=== PATIENT | female | born 1985 | race Caucasian/White ===

== ENCOUNTER → 2016-03-18 | Day surgery (SDC) | payer MEDICAID ==
[~2016-03-18] VITALS: Ht 160 cm; Wt 70.3 kg
[~2016-03-18] MED LIST: DEXAMETHASONE SOD PHOS 10MG/1ML VIAL INJ ONE; LACT. RINGERS/OXYTOCIN 20UNITS 1,000 ML IV ONE; LACTATED RINGER'S 1,000 ML IV SCH; LITHIUM; MIDAZOLAM HCL 1MG/1ML-2 ML VIAL ONE; ONDANSETRON HCL 4 MG/2 ML VIAL IV PRN; OXYTOCIN 10UNIT/ML 1ML VIAL ONE; PROPOFOL 10 MG/ML 20 ML IV ONE; SERAQUIL; SODIUM CHLORIDE 0.9% 1,000 ML IV ONE; SODIUM CHLORIDE 0.9% 1,000 ML IV SCH; WELLBUTRIN; ceFAZolin 1GM/50ML D5W 50 ML IV ONE; fentaNYL CITRATE 100 MCG/2 ML VL ONE
[2016-03-18 11:04] LABS: Basophils # (auto) 0 uL; Basophils % (auto) 0.4 % (0.0-2.0); DEFINITIVE VIEW TRANSMISSION; Eosinophils # (auto) 0.1 uL; Eosinophils % (auto) 1.6 % (0.0-7.0); Hematocrit 28.4 % (36.0-46.0); Lymphocytes # (auto) 2.1 uL; Lymphocytes % (auto) 22.1 % (10.0-50.0); Mean Corpuscular Hemoglobin 23.3 pg (28.0-32.0); Mean Corpuscular Hgb Conc. 31.8 g/dL (32.0-36.0); Mean Corpuscular Volume 73.4 fL (80.0-100.0); Mean Platelet Volume 8.1 fL (7.4-10.4); Monocytes # (auto) 0.6 uL; Monocytes % (auto) 6.2 % (0.0-12.0); Neutrophils # (auto) 6.6 uL; Neutrophils % (auto) 69.7 % (37.0-80.0); Platelet Count (auto) 292 10^3/uL (140-450); White Blood Cell 9.5 10^3/uL (4.4-10.8)
[2016-03-18 11:05] LABS: Red Cell Distribution Width 21.7 % (11.6-16.0)
[2016-03-18 11:21] LABS: Albumin 2.9 g/dL (3.4-5.0); BUN/Creatinine Ratio 16.4; Bilirubin, Total 0.2 mg/dL (0.2-1.0); Calcium 8.3 mg/dL (8.5-10.1); INR 1.05 (0.9-1.15); Partial Thromboplastin Time 28.7 sec (22.64-33.71); Potassium 3.6 mmol/L (3.5-5.1); Prothrombin Time 10.8 sec (9.37-12.3); Total Protein 6.4 g/dL (6.4-8.2)
[2016-03-18 11:25] LABS: Platelet Estimate Adequate
[2016-03-18 11:26] LABS: Anisocytosis Slight; Hypochromia Slight
[2016-03-18 15:51] VITALS: BP 129/72
== END | disposition home or self-care (01) ==
LOC: EDUNIT# 08:29 → ER 08:32 → OR 1 08:33
PROVIDERS: ATTEND Specialist
DX: O03.4 Incomplete spontaneous abortion without complication (principal); D64.9 Anemia, unspecified; F17.200 Nicotine dependence, unspecified, uncomplicated; N71.9 Inflammatory disease of uterus, unspecified; F31.9 Bipolar disorder, unspecified
CPT/HCPCS: 59812; J2590; J3010; J7030; 36415; 76856; 80053; 84702; 85025; 85049; 85610; 85730; 86850; 86900; 86901; J0690; J1100; J2250; J2704

== ENCOUNTER 2017-07-20 12:45 | Observation (INO) | payer MEDICAID ==
[~2017-07-20 12:45] MED LIST changes: -DEXAMETHASONE SOD PHOS 10MG/1ML VIAL INJ ONE; -LACT. RINGERS/OXYTOCIN 20UNITS 1,000 ML IV ONE; -LACTATED RINGER'S 1,000 ML IV SCH; -MIDAZOLAM HCL 1MG/1ML-2 ML VIAL ONE; -ONDANSETRON HCL 4 MG/2 ML VIAL IV PRN; -OXYTOCIN 10UNIT/ML 1ML VIAL ONE; -PROPOFOL 10 MG/ML 20 ML IV ONE; -SODIUM CHLORIDE 0.9% 1,000 ML IV ONE; -SODIUM CHLORIDE 0.9% 1,000 ML IV SCH; -ceFAZolin 1GM/50ML D5W 50 ML IV ONE; -fentaNYL CITRATE 100 MCG/2 ML VL ONE
[2017-07-20 13:57] LABS: Urine Bacteria MANY /hpf (None Seen); Urine Blood Negative /uL (Negative); Urine Specific Gravity 1.014 (1.001-1.035); Urine WBC 21 /hpf (0 - 5)
[2017-07-20 14:09] LABS: Alcohol, Urine < 3.0 mg/dL (0-5); Amphetamine Screen, Urine NEGATIVE (NEGATIVE); Barbiturate Scree,Urine NEGATIVE (NEGATIVE); Benzodiazephine Screen, Urine NEGATIVE (NEGATIVE); Cannabinoid Screen, Urine NEGATIVE (NEGATIVE); Cocaine Screen, Urine NEGATIVE (NEGATIVE); Opiate Scree,Urine NEGATIVE (NEGATIVE); Phencyclidine Screen, Urine NEGATIVE (NEGATIVE)
[2017-07-20 16:03] LABS: Hemoglobin 12.2 g/dL (12.2-16.2); Mean Corpuscular Hemoglobin 27.7 pg (28.0-32.0); Mean Corpuscular Hgb Conc. 33.9 g/dL (32.0-36.0); Mean Corpuscular Volume 81.8 fL (80.0-100.0); Platelet Count (auto) 295 10^3/uL (140-450); Red Cell Distribution Width 15.2 % (11.8-14.3); White Blood Cell 17.8 10^3/uL (4.4-10.8)
[2017-07-20 16:11] LABS: Alanine Aminotransferase 115 U/L (13-56); Albumin 2.3 g/dL (3.4-5.0); Alkaline Phosphatase 178 U/L (45-117); Anion Gap 9 (5-15); Aspartate Aminotransferase 71 U/L (15-37); BUN/Creatinine Ratio 16.2; Bilirubin, Total < 0.1 mg/dL (0.2-1.0); Blood Urea Nitrogen 12 mg/dL (7-18); Calcium 8.2 mg/dL (8.5-10.1); Carbon Dioxide 24 mmol/L (21-32); Chloride 105 mmol/L (98-107); GFR African American 119 mL/min; GFR Non-African American 98 mL/min; Glucose 104 mg/dL (74-106); Potassium 3.8 mmol/L (3.5-5.1); Sodium 138 mmol/L (136-145); Total Protein 6.7 g/dL (6.4-8.2); Uric Acid 4.5 mg/dL (2.6-6.0)
[2017-07-20 16:21] LABS: INR 0.9 (0.9-1.15); Partial Thromboplastin Time 28.3 sec (23.78-33.04); Prothrombin Time 9.7 sec (9.27-12.13)
[2017-07-20 16:34] LABS: Band Neutrophils % (manual) 0; Basophils % (manual) 0 (0.0-2.0); Blast Cells 0; Myelocytes % 0; Promyelocytes % 0; Reactive Lymphocytes 0
[2017-07-20 16:39] LABS: Eosinophils % (manual) 1 (0-7); Lymphocytes % (manual) 22 (10.0-50.0); Metamyelocytes % 1; Monocytes % (manual) 6 (0-12)
[2017-07-21 05:06] LABS: RPR Non Reactive (Non Reactive)
[2017-07-21 09:10] LABS: Rubella Antibodies, IgG 9.98 index (Immune >0.99)
== END 2017-07-20 16:10 | disposition home or self-care (01) | DRG 566 ==
LOC: LDRP 12:45
PROVIDERS: ADMIT Obstetrics & Gynecology; ATTEND Obstetrics & Gynecology
DX: O26.893 Other specified pregnancy related conditions, third trimester (principal); R10.9 Unspecified abdominal pain; Z3A.33 33 weeks gestation of pregnancy
CPT/HCPCS: 36415; 59025; 76805; 80053; 80307; 81001; 81002; 84550; 85007; 85027; 85610; 85730; 86592; 86703; 86762; 86850; 86900; 86901; 87340; G0378

== ENCOUNTER 2017-07-25 14:25 | Observation (INO) | payer MEDICAID ==
[2017-07-25] MEDS ORDERED: AMPICILLIN SOD 2GM INJ 2 GM in SODIUM CHL 0.9% 100 ML IV ONE (15:30)
[2017-07-25] MEDS ORDERED: BETAMETHASONE ACET (6MG/ML) 5ML VIAL IM ONE (15:30)
[2017-07-25] MEDS: LACTATED RINGER'S 1,000 ML IV SCH ×2 (15:37→16:00)
[2017-07-25] MEDS ORDERED: MAGNESIUM SULFATE 40MG/ML 1,000 ML IV SCH (15:41)
[2017-07-25] MEDS ORDERED: MAGNESIUM SULFATE 100 ML IV ONE (15:45)
[2017-07-25 15:51] LABS: Hematocrit 35.5 % (36.0-46.0); Hemoglobin 11.7 g/dL (12.2-16.2); Mean Corpuscular Hemoglobin 27.1 pg (28.0-32.0); Mean Corpuscular Volume 82.1 fL (80.0-100.0); Platelet Count (auto) 242 10^3/uL (140-450); Red Blood Cells 4.33 10^6/uL (4.0-5.20); Red Cell Distribution Width 15.6 % (11.8-14.3); White Blood Cell 13.1 10^3/uL (4.4-10.8)
[2017-07-25 15:55] LABS: Band Neutrophils % (manual) 0; Basophils % (manual) 0 (0.0-2.0); Blast Cells 0; Eosinophils % (manual) 0 (0-7); Metamyelocytes % 0; Myelocytes % 0; Promyelocytes % 0; Reactive Lymphocytes 0
[2017-07-25] MEDS ORDERED: TERBUTALINE SULFATE 1 MG/ML 1ML VIAL SC ONE (16:00)
[2017-07-25 16:02] LABS: Albumin 2.2 g/dL (3.4-5.0); BUN/Creatinine Ratio 22.6; Calcium 8.6 mg/dL (8.5-10.1); Potassium 3.7 mmol/L (3.5-5.1)
[2017-07-25 16:03] LABS: INR 0.91 (0.9-1.15); Partial Thromboplastin Time 28.7 sec (23.78-33.04); Prothrombin Time 9.8 sec (9.27-12.13)
[2017-07-25 16:05] LABS: Bilirubin, Total 0.1 mg/dL (0.2-1.0); Total Protein 6.2 g/dL (6.4-8.2)
[2017-07-25 16:17] LABS: Lymphocytes % (manual) 31 (10.0-50.0); Monocytes % (manual) 6 (0-12)
== END 2017-07-25 16:15 | disposition home or self-care (01) | DRG 566 ==
LOC: LDRP 14:25
PROVIDERS: ADMIT Obstetrics & Gynecology; ATTEND Obstetrics & Gynecology
DX: O26.853 Spotting complicating pregnancy, third trimester (principal); O26.893 Other specified pregnancy related conditions, third trimester; R10.2 Pelvic and perineal pain; O99.330 Smoking (tobacco) complicating pregnancy, unspecified trimester; Z3A.33 33 weeks gestation of pregnancy
CPT/HCPCS: 36415; 59025; 76805; 80053; 85007; 85027; 85610; 85730; 86850; 86900; 86901; 96360; 96372; G0378; J0290; J0702; J3105; 96361

== ENCOUNTER 2018-02-06 11:05 | Emergency (ER) | payer MEDICAID ==
[~2018-02-06] VITALS: Ht 160 cm; Wt 61.2 kg
[2018-02-06 11:18] VITALS: BP 126/71
[2018-02-06] MEDS ORDERED: KETOROLAC TROMETH 60MG/2ML VIAL IM ONE (12:15)
== END 2018-02-06 12:42 | disposition home or self-care (01) ==
LOC: ER 11:05
DX: S39.012A Strain of muscle, fascia and tendon of lower back, initial encounter (principal); N39.0 Urinary tract infection, site not specified; F17.210 Nicotine dependence, cigarettes, uncomplicated; Z88.1 Allergy status to other antibiotic agents; X58.XXXA Exposure to other specified factors, initial encounter; Y93.89 Activity, other specified; Y99.8 Other external cause status; Y92.89 Other specified places as the place of occurrence of the external cause
CPT/HCPCS: 81002; 81025; 96372; 99283; J1885

== ENCOUNTER 2018-04-07 13:51 | Emergency (ER) | payer MEDICAID ==
[~2018-04-07] VITALS: Ht 160 cm; Wt 70.3 kg
[2018-04-07 14:02] VITALS: BP 91/56
[2018-04-07 14:48] LABS: Basophils # (auto) 0.1 uL; Basophils % (auto) 0.3 % (0.0-2.0); Eosinophils # (auto) 0 uL; Eosinophils % (auto) 0.2 % (0.0-7.0); Hematocrit 42.1 % (36.0-46.0); Lymphocytes # (auto) 1.9 uL; Lymphocytes % (auto) 11.1 % (10.0-50.0); Mean Corpuscular Hemoglobin 27.8 pg (28.0-32.0); Mean Corpuscular Hgb Conc. 33.2 g/dL (32.0-36.0); Mean Corpuscular Volume 83.7 fL (80.0-100.0); Monocytes # (auto) 1.9 uL; Monocytes % (auto) 11.1 % (0.0-12.0); Neutrophils # (auto) 13.4 uL; Neutrophils % (auto) 77.3 % (37.0-80.0); Platelet Count (auto) 218 10^3/uL (140-450); Red Blood Cells 5.03 10^6/uL (4.0-5.20); Red Cell Distribution Width 15.8 % (11.8-14.3); White Blood Cell 17.3 10^3/uL (4.4-10.8)
== END 2018-04-07 21:00 | disposition left against medical advice (07) ==
LOC: ER 13:51
DX: M54.9 Dorsalgia, unspecified (principal); Z53.21 Procedure and treatment not carried out due to patient leaving prior to being seen by health care provider
CPT/HCPCS: 36415; 76801; 76817; 84702; 85025

== ENCOUNTER 2021-04-29 10:29 | Emergency (ER) | payer MEDICAID ==
[~2021-04-29] VITALS: Ht 160 cm; Wt 74.8 kg
[2021-04-29] MEDS ORDERED: methylPREDNISolone SOD SUCC 125 MG/2 ML VL IM ONE (12:45)
[2021-04-29] MEDS ORDERED: cefTRIAXone SOD 1,000 MG VL IM ONE (12:45)
[2021-04-29] MEDS ORDERED: KETOROLAC TROMETH 60MG/2ML VIAL IM ONE (12:45)
[2021-04-29] MEDS ORDERED: CEPH-509 PO (12:46)
[2021-04-29] MEDS ORDERED: IBUP800T27 PO (12:46)
[2021-04-29] MEDS ORDERED: CLIN1GEL24 TOP (12:46)
[2021-04-29 13:15] VITALS: BP 113/76
== END 2021-04-29 13:29 | disposition home or self-care (01) ==
LOC: ER 10:29
DX: L73.2 Hidradenitis suppurativa (principal); F17.210 Nicotine dependence, cigarettes, uncomplicated; F12.10 Cannabis abuse, uncomplicated; Z88.1 Allergy status to other antibiotic agents
CPT/HCPCS: 96372; 99284; J0696; J1885; J2930